=== PATIENT | female | born 1975 | race Caucasian/White ===

== ENCOUNTER 2023-06-13 07:55 | Outpatient (CLI) | payer OTHER, SELFPAY | END 2023-06-13 07:56 | disposition home or self-care (01) | LOC: NFLDREF 06-14 12:35 | PROVIDERS: PCP Emergency Medicine; Referring Provider Emergency Medicine; Visit Provider Emergency Medicine | DX: N92.0 Excessive and frequent menstruation with regular cycle (principal); Z13.1 Encounter for screening for diabetes mellitus; Z13.6 Encounter for screening for cardiovascular disorders | CPT/HCPCS: 80061; 82947 ==

== ENCOUNTER 2023-06-19 09:00 | Outpatient (CLI) | payer OTHER, SELFPAY ==
--- NOTE | 2023-06-19 10:08 | W.ANESCHARGE ---
Anesthesia Charges Start Date/Time Anesthesia Start Date: 06/19/23 Anesthesia Start Time: 09:39 Stop Date/Time Anesthesia Stop Date: 06/19/23 Anesthesia Stop Time: 10:05
--- NOTE | 2023-06-19 10:15 | W.ANESCHARGE ---
Anesthesia Charges Start Date/Time Anesthesia Start Date: 06/19/23 Anesthesia Start Time: 09:39 Stop Date/Time Anesthesia Stop Date: 06/19/23 Anesthesia Stop Time: 10:05
== END 2023-06-19 09:01 | disposition home or self-care (01) ==
LOC: OP CLINIC 09:00
PROVIDERS: PCP Emergency Medicine; Visit Provider Internal Medicine
DX: Z12.11 Encounter for screening for malignant neoplasm of colon (principal); K63.5 Polyp of colon
CPT/HCPCS: 00811; 45380; 88305; J2704

== ENCOUNTER 2024-05-30 09:20 | Outpatient (CLI) | payer OTHER, SELFPAY | END 2024-05-30 09:21 | disposition home or self-care (01) | LOC: NFLDREF 14:54 | PROVIDERS: PCP Emergency Medicine; Referring Provider Emergency Medicine; Visit Provider Emergency Medicine | DX: D72.819 Decreased white blood cell count, unspecified (principal); Z13.1 Encounter for screening for diabetes mellitus; Z13.6 Encounter for screening for cardiovascular disorders | CPT/HCPCS: 80061; 82947 ==